=== PATIENT | female | born 1975 | race American Indian/Alaskan Native ===

== ENCOUNTER 2018-03-10 01:08 | Emergency (ER) | payer SELFPAY ==
[2018-03-10 01:16] VITALS: BP 180/88
[2018-03-10] MEDS ORDERED: Bacitracin Oint 1 GM U/D Packet TOP ONE (01:16)
[2018-03-10] MEDS ORDERED: Lidocaine 1% 30 ML SDV INJECT ONE (01:16)
[2018-03-10] MEDS ORDERED: Diphtheria,Pertussis(Acell),Tetanus Vaccine 0.5 ML SDV IM ONE (01:17)
[2018-03-10] MEDS ORDERED: Doxycycline 100 MG Cap PO ONE (01:18)
--- NOTE | 2018-03-10 01:19 | EDM.PDOC ---
ED HPI GENERAL MEDICAL PROBLEM - General Chief Complaint: Bite:Animal, Insect Stated Complaint: BIT BY DOG, MAY NEED STITCHES [phone] Time Seen by Provider: 03/10/18 01:13 Source of Information: Reports: Patient History Limitations: Reports: No Limitations - History of Present Illness INITIAL COMMENTS - FREE TEXT/NARRATIVE: States bit right thigh by brother in laws Burkinan Bolanos. Dog usually not mean but "people were hiding in garage. Washed wound with peroxide and came to ER. States dog is current with immunizations. - Related Data Allergies Allergy/AdvReac Type Severity Reaction Status Date / Time cefazolin sodium [From [facility]] Allergy Hives Verified 09/25/14 16:44 Home Meds: Home Meds . [Unable to Verify Home Med List] 03/10/18 [History] ED ROS GENERAL - Review of Systems Review Of Systems: ROS reveals no pertinent complaints other than HPI. ED EXAM, ANIMAL BITE - Physical Exam Exam: See Below Exam Limited By: Other General Appearance: Anxious, Mild Distress Eye Exam: Bilateral Eye: EOMI Ears: Normal External Exam Throat/Mouth: Normal Voice Neck: Normal Inspection Respiratory/Chest: No Respiratory Distress Cardiovascular: Regular Rate, Rhythm Extremities: Leg Pain Neurological: Alert, Oriented, Normal Cognition Skin Exam: Ecchymosis, Other (5 cm gaping laceration right mid lateral thigh, bleeding controlled. ) ED ANIMAL BITE PROCEDURES - Laceration/Wound Repair Right Mid-Anterior Thigh Lac/Wound Length In cm: 5 (gaping) Appearance: Superficial Distal NVT: Neuro & Vascular Intact Anesthetic Type: Local Local Anesthesia - Lidocaine (Xylocaine): 1% Plain Local Anesthetic Volume: 2cc Skin Prep: Chlorhexidine (Hibiciens), Saline Saline Irrigation (cc's): 400 Exploration/Debridement/Repair: Wound Explored Closed With: Sutures Suture Size: 4-0 # of Sutures: 4 Drain Placement: No Sterile Dressing Applied: Nurse Tetanus Status Addressed: Yes Complications: No Course - Vital Signs Last Recorded V/S: Last Vital Signs Temp 98.2 F 03/10/18 01:15 Pulse 109 H 03/10/18 01:15 Resp 18 03/10/18 01:15 BP 180/88 H 03/10/18 01:15 Pulse Ox 97 03/10/18 01:15 - Orders/Labs/Meds Orders: Active Orders 24 hr Category Date Time Status Vaccines to be Administered [RC] PER UNIT ROUTINE Care 03/10/18 01:17 Active Meds: Medications Discontinued Medications Generic Name Dose Route Start Last Admin Trade Name Genesis PRN Reason Stop Dose Admin Bacitracin 1 dose 03/10/18 01:16 03/10/18 01:24 Bacitracin Oint 1 Gm TOP 03/10/18 01:17 1 dose ONETIME ONE Administration Diphtheria/Tetanus/Acell Pertussis 0.5 ml 03/10/18 01:17 03/10/18 01:23 Adacel IM 03/10/18 01:18 0.5 ml .ONCE ONE Administration Doxycycline Hyclate 100 mg 03/10/18 01:18 03/10/18 01:24 Vibramycin PO 03/10/18 01:19 100 mg ONETIME ONE Administration Ibuprofen 600 mg 03/10/18 01:29 03/10/18 01:38 Motrin PO 03/10/18 01:30 600 mg ONETIME ONE Administration Lidocaine HCl 30 ml 03/10/18 01:16 03/10/18 01:22 Xylocaine-Mpf 1% INJECT 03/10/18 01:17 30 ml ONETIME ONE Administration Departure - Departure Time of Disposition: 01:54 Disposition: Home, Self-Care 01 Condition: Good Clinical Impression: Broken skin Dog bite Qualifiers: Encounter type: initial encounter Qualified Code(s): W54.0XXA - Bitten by dog, initial encounter - Discharge Information *PRESCRIPTION DRUG MONITORING PROGRAM REVIEWED*: Not Applicable Instructions: Animal Bite, [id number], Stitches, [place], or Adhesive Wound Closure, [id number] Forms: ED Department Discharge Additional Instructions: keep clean and dry antibiotic ointment with twice daily dressing change x 2 days, then may cover during day and open to air at overnight caregiver for redness swelling or drainage, if noted follow up tylenol or ibuprofen for discomfort sutures out 10 days doxycycline 100mg one twice daily for one week - My Orders Last 24 Hours: My Active Orders 03/10/18 01:17 Vaccines to be Administered [RC] PER UNIT ROUTINE - Assessment/Plan Last 24 Hours: My Active Orders 03/10/18 01:17 Vaccines to be Administered [RC] PER UNIT ROUTINE
[2018-03-10] MEDS ORDERED: Ibuprofen 600 MG Tab PO ONE (01:29)
== END 2018-03-10 02:00 | disposition home or self-care (01) ==
LOC: DL.ED 01:08
DX: S71.151A Open bite, right thigh, initial encounter (principal); W54.0XXA Bitten by dog, initial encounter; Z23 Encounter for immunization; Z88.8 Allergy status to other drugs, medicaments and biological substances
CPT/HCPCS: 12002; 90471; 90715; 99283; A9270; 12011